=== PATIENT | female | born 1985 | race Caucasian/White ===

== ENCOUNTER 2017-04-04 20:50 | Emergency (ER) | payer OTHER, SELFPAY ==
[2017-04-04 21:03] VITALS: BP 119/79; PULSE 88; RESP 18; TEMP 98.6; O2SAT 99; BMI 25.4
[2017-04-04] MEDS ORDERED: TDAP Vaccine 0.5 mL Syr IM ONE (21:46)
--- NOTE | 2017-04-04 22:02 | ED PDOC ---
Arrival/HPI <Brooks Flynn - Last Filed: 04/04/17 22:04> - General Historian: Patient - History of Present Illness Time/Duration: Prior to Arrival Symptom Onset: Sudden Symptom Course: Unchanged Quality: Aching, Burning Severity Level: 5 <Shwetha Campos - Last Filed: 04/05/17 00:46> - General Chief Complaint: Abnormal Skin Integrity Time Seen by Provider: 04/04/17 21:44 - History of Present Illness Narrative History of Present Illness (Text): 04/04/17 23:47 31-year-old type I diabetic presents today with bilateral lower leg laceration status post injury. Patient states she was at [employer] and she was trying to do a box jump and hit both lower legs simultaneously into the box sustaining lacerations to both lower legs. Patient unsure of her last tetanus shot. Complaining of pain around the laceration site. Denies numbness weakness or tingling in the lower extremities. Incident occurred prior to arrival. No medications have been taken for pain at home. (Shwetha Campos) Past Medical History - Provider Review Nursing Documentation Reviewed: Yes - Travel History Have you recently traveled outside [place] w/in the past 3 mons?: No - Infectious Disease Hx of Infectious Diseases: None - Tetanus Immunization Tetanus Immunization: Unknown - Past Medical History Past Medical History: No Previous - Cardiac Hx Cardiac Disorders: No - Pulmonary Hx Respiratory Disorders: No - Neurological Hx Neurological Disorder: No - HEENT Hx HEENT Disorder: No - Renal Hx Renal Disorder: No - Endocrine/Metabolic Hx Endocrine Disorders: Yes Hx Diabetes Mellitus Type 1: Yes - Hematological/Oncological Hx Blood Disorders: No - Integumentary Hx Dermatological Disorder: No - Musculoskeletal/Rheumatological Hx Musculoskeletal Disorders: No - Gastrointestinal Hx Gastrointestinal Disorders: No - Genitourinary/Gynecological Hx Genitourinary Disorders: No - Psychiatric Hx Psychophysiologic Disorder: No Hx Substance Use: No - Surgical History Hx Appendectomy: Yes Hx Section: Yes (1) - Anesthesia Hx Anesthesia Reactions: No Hx Malignant Hyperthermia: No - Suicidal Assessment Feels Threatened In Home Enviroment: No <Shwetha Campos - Last Filed: 04/05/17 00:46> Family/Social History - Physician Review Nursing Documentation Reviewed: Yes Family/Social History: Unknown Family HX Smoking Status: Never Smoked Hx Alcohol Use: No Hx Substance Use: No Hx Substance Use Treatment: No <Shwetha Campos T - Last Filed: 04/05/17 00:46> Allergies/Home Meds <Brooks Flynn - Last Filed: 04/04/17 22:04> <Shwetha Campos - Last Filed: 04/05/17 00:46> Allergies/Adverse Reactions: Allergies No Known Allergies Allergy (Verified 02/27/14 18:01) Review of Systems - Review of Systems Constitutional: absent: Fatigue, Fevers Respiratory: absent: SOB, Cough Cardiovascular: absent: Chest Pain, Palpitations Gastrointestinal: absent: Abdominal Pain Genitourinary Female: absent: Dysuria Musculoskeletal: Arthralgias Skin: Laceration (b/l lower legs) Neurological: absent: Headache, Dizziness Psychiatric: absent: Anxiety, Depression <Shwetha Campos - Last Filed: 04/05/17 00:46> Physical Exam Vital Signs Reviewed: Yes Temperature: Afebrile Blood Pressure: Normal Pulse: Regular Respiratory Rate: Normal Appearance: Positive for: Well-Appearing, Non-Toxic, Comfortable Pain Distress: None Mental Status: Positive for: Alert and Oriented X 3 Finger Stick Blood Glucose: 173 - Systems Exam Head: Present: Atraumatic Mouth: Present: Moist Mucous Membranes Neck: Present: Normal Range of Motion Respiratory/Chest: Present: Clear to Auscultation, Good Air Exchange. No: Respiratory Distress, Accessory Muscle Use Cardiovascular: Present: Regular Rate and Rhythm, Normal S1, S2. No: Murmurs Lower Extremity: Present: Normal ROM, Tenderness (right leg; there is a linear laceration along the anterior aspect of mid tibia. no active bleeding; no step offs; no erythema; no edema. left leg; there is a linear laceration along the anterior mid tibia without active bleeding; no edema, no erythema; no ecchymosis ; sensation and distal pulses intact. ), Neurovascularly Intact. No: Swelling, Erythema Neurological: Present: GCS=15 Skin: Present: Warm, Dry Psychiatric: Present: Alert, Oriented x 3 <Shwetha Campos - Last Filed: 04/05/17 00:46> Vital Signs Temp Pulse Resp BP Pulse Ox 04/04/17 21:02 98.6 F 88 18 119/79 99 Medical Decision Making <Brooks Flynn - Last Filed: 04/04/17 22:04> <Shwetha Campos - Last Filed: 04/05/17 00:46> ED Course and Treatment: 04/04/17 22:01 pt with linear lacerations to both lower legs; tetanus updated toradol IM keflex Po vice president of finance dr. lotus Mckee; repaired the lacerations at beside. xrays left tib/fib; no fracture xrays right lower leg; no fracture, + bony lesion distal tibia. 04/04/17 23:52 PT LEFT WITHOUT DISCHARGE INSTRUCTIONS AND WITHOUT RESULTS OF XRAY WHICH SHOWED BONY LESION ON RIGHT TIBIA; CALLED PATIENT AND LEFT MESSAGE TO CALL BACK SHE HAS ABNORMAL FINDINGS AND NEEDS F/U. 04/05/17 00:35 Pt returned to ER: Patient was advised to keep the wound clean and dry, apply bacitracin twice daily. Advised to return immediately if signs of infection develop or return if any other concerning symptoms develop. pt was advised to take abx as prescribed ; pt was advised to return in 10 days for suture removal. I discussed xray findings of bony lesion with patient and advised f/u with orthopedist. Patient verbalizes understanding of discharge instructions and need for immediate followup. all aspects of this case were discussed the attending of record. Impression: Laceration bilateral lower legs, bony lesion Motrin every 6 hours as needed for pain Keflex 1 capsule 4 times daily 7 days Keep the wound clean and dry, apply bacitracin twice daily Return in 10 days for suture removal Return immediately if signs of infection develop: High fevers, increasing pain, redness, swelling, purulent discharge Followup with primary care physician within the next 2 days Return if any other concerning symptoms develop (Shwetha Campos) - Lab Interpretations Lab Results: Lab Results 04/04/17 21:27: POC Glucose (mg/dL) 173 H - RAD Interpretation Radiology Orders: 04/04/17 21:46 TIBIA FIBULA LEFT [RAD] Stat TIBIA FIBULA RIGHT [RAD] Stat - Medication Orders Current Medication Orders: Discontinued Medications Cephalexin Monohydrate (Keflex) 500 mg PO STAT STA PRN Reason: Protocol Stop: 04/04/17 22:02 Ketorolac Tromethamine (Toradol) 60 mg IM STAT STA Stop: 04/04/17 21:47 Lidocaine HCl (Lidocaine 1% (20ml)) Confirm Administered Dose 20 ml .ROUTE .STK- MED ONE Stop: 04/04/17 22:10 Tetanus/Reduced Diphtheria/Acell Pertussis (Boostrix Vaccine Inj) 0.5 ml IM .ONCE ONE Stop: 04/04/17 21:47 - PA / GUARD CHIEF / Resident Statement CARLOS has reviewed & agrees with the documentation as recorded. CARLOS has examined the patient and agrees with the treatment plan. <Brooks Flynn - Last Filed: 04/04/17 22:04> Disposition/Present on Arrival <Brooks Flynn - Last Filed: 04/04/17 22:04> - Present on Arrival Any Indicators Present on Arrival: No History of DVT/PE: No History of Uncontrolled Diabetes: No Urinary Catheter: No History of Decub. Ulcer: No History Surgical Site Infection Following: None - Disposition Have Diagnosis and Disposition been Completed?: Yes Disposition Time: 00:01 Patient Plan: Discharge <BethTeodoroShwetha T - Last Filed: 04/05/17 00:46> - Disposition Diagnosis: Laceration of leg, Bone lesion Disposition: HOME/ ROUTINE Patient Problems: Current Active Problems Problem Status Onset Bone lesion Acute Laceration of leg Acute Condition: GOOD Discharge Instructions (ExitCare): Care For Your Stitches (ED), Laceration (ED) Additional Instructions: Motrin every 6 hours as needed for pain Keflex 1 capsule 4 times daily 7 days Keep the wound clean and dry, apply bacitracin twice daily Return in 10 days for suture removal Return immediately if signs of infection develop: High fevers, increasing pain, redness, swelling, purulent discharge Followup with primary care physician within the next 2 days Return if any other concerning symptoms develop FOLLOW UP WITH THE ORTHOPEDIST REGARDING THE BONY LESION FOUND ON XRAY OF THE RIGHT LEG. Prescriptions: Cephalexin [Keflex] 500 mg PO QID #28 capsule Ibuprofen [Motrin] 600 mg PO Q6H PRN #20 tab PRN Reason: pain/fever reduction Referrals: Modesto Contreras MD [Primary Care Provider] - Follow up with primary Ferdinand German MD [Staff Provider] - Follow up with primary Forms: WORK NOTE
[2017-04-04] MEDS ORDERED: Lidocaine 1% Inj (20ml) ONE (22:09)
--- NOTE | 2017-04-04 23:06 | PCM.PROC ---
Procedures Attestation:: I certify that I have explained the specified Operation(s) or Procedure(s), risks, benefits and reasonable alternatives to the Patient and/or other person responsible. The opportunity was given to ask questions and all questions answered - Laceration lidocaine 1% involves muscle layer linear irrigated extensively left lower extremity 3-0 other local infiltration other Site: lower extremity Side (if applicable): left (2.5 cm), right (2.5 cm) Description: linear Depth: simple, single layer Anesthesia used: lidocaine 1%, with EPI Anesthesia technique: local infiltration Amount (mLs): 5 (5cc total 2.5 each leg) Pre-repair: wound explored, irrigated extensively, deep structures intact Skin layer closed with: other (Nylon) Size: 3-0 Number of sutures: 3 Technique: simple, interrupted, other (virtcle mattress) Subcutaneous layer closed with: other (nylon)
--- NOTE | 2017-04-05 09:27 | RAD ---
PROCEDURE: Radiographs of the right tibia and fibula. HISTORY: fall COMPARISON: None available. TECHNIQUE: Frontal and lateral views obtained. FINDINGS: BONES: No fracture or destructive lesion. JOINT SPACES: Unremarkable. OTHER FINDINGS: None. IMPRESSION: Unremarkable radiographs of the right tibia and fibula.
--- NOTE | 2017-04-05 09:28 | RAD ---
PROCEDURE: Radiographs of the left tibia and fibula. HISTORY: fall/lac COMPARISON: None available. TECHNIQUE: Frontal and lateral views obtained. FINDINGS: BONES: No fracture or destructive lesion. JOINT SPACES: Unremarkable. OTHER FINDINGS: None. IMPRESSION: Unremarkable radiographs of the left tibia and fibula.
== END 2017-04-05 00:46 | disposition home or self-care (01) ==
LOC: ED 20:50
DX: S81.812A Laceration without foreign body, left lower leg, initial encounter (principal); S81.811A Laceration without foreign body, right lower leg, initial encounter; W22.8XXA Striking against or struck by other objects, initial encounter; E10.9 Type 1 diabetes mellitus without complications; M89.9 Disorder of bone, unspecified